=== PATIENT | female | born 1985 | race African-American/Black ===

== ENCOUNTER 2016-10-10 05:40 | Inpatient (IN) | payer OTHER ==
[~2016-10-10] VITALS: Ht 165.1 cm; Wt 98.4 kg
[2016-10-10] VITALS (16 sets, daily range): BP systolic 103–117; RESP 16–22; TEMP 97.4–98.2; Ht 165.1 cm; Wt 98.4 kg
[2016-10-10] MEDS ORDERED: LIDOCAINE 1% BUFFERED 1 ML SYR INTRADERM PRN (07:10)
[2016-10-10] MEDS ORDERED: METOCLOPRAMIDE 10 MG/2 ML VIAL IV PUSH ONE (07:10)
[2016-10-10] MEDS ORDERED: CEFAZOLIN (LD/OB) 100 ML IV ONE (07:10)
[2016-10-10] MEDS ORDERED: FAMOTIDINE 20 MG INJ IV ONE (07:10)
[2016-10-10] MEDS: LACT RINGERS 1,000 ML IV SCH ×2 (07:15→09:16)
[2016-10-10] MEDS ORDERED: MORPHINE 4 MG/ML SYR IV PRN ×2 (09:30)
[2016-10-10] MEDS ORDERED: MORPHINE 2 MG/ML SYR IV PRN ×2 (09:30)
[2016-10-10] MEDS ORDERED: NALOXONE 0.4 MG/ML AMP IV PRN (09:30)
[2016-10-10] MEDS ORDERED: DIPHENHYDRAMINE 50 MG/ML VIAL IV PRN (09:30)
[2016-10-10] MEDS ORDERED: SALINE FLUSH 10 ML FLUSH PRN (09:30)
[2016-10-10] MEDS ORDERED: BUTORPHANOL 1 MG/ML VIAL IV PRN (09:30)
[2016-10-10] MEDS ORDERED: DILAUDID 1 MG/ML AMP IV PRN (09:30)
[2016-10-10] MEDS ORDERED: MEPERIDINE 25 MG/ML IV PRN (09:30)
[2016-10-10] MEDS ORDERED: OXYCODONE 5 MG TAB PO PRN (09:30)
[2016-10-10] MEDS ORDERED: MEASLES,MUMPS,RUBELLA VAC SUBQ.VACC ONE (10:40)
[2016-10-10] MEDS ORDERED: TDaP 0.5 ML VIAL IM.VACC ONE (10:40)
[2016-10-10] MEDS ORDERED: ONDANSETRON 4 MG VIAL IV PRN (10:40)
[2016-10-10] MEDS ORDERED: OXYTOCIN 15 UNITS/250 ML NS 250 ML IV SCH (10:40)
[2016-10-10] MEDS ORDERED: LACT RINGERS 1,000 ML IV SCH (10:40)
[2016-10-10] MEDS ORDERED: MAG HYDROX 30 ML UDC PO PRN (10:40)
[2016-10-10] MEDS: MISOPROSTOL 200 MCG TAB PO SCH ×2 (11:15→13:55)
[2016-10-10] MEDS: KETOROLAC 30 MG/ML VIAL IV SCH ×3 (12:21→23:58)
[2016-10-10] MEDS ORDERED: MISSING DOSE XX ONE (14:15)
[2016-10-10] MEDS ORDERED: SCOPOLAMINE PATCH TRANSDERM ONE (14:15)
[2016-10-10] MEDS ORDERED: MISOPROSTOL 100 MCG TAB PO ONE (18:10)
[2016-10-10] MEDS: SALINE FLUSH 10 ML FLUSH SCH (20:00)
[2016-10-11 02:25] VITALS: BP_SYST 110; RESP 16; TEMP 98.3
[2016-10-11 05:26] VITALS: BP_SYST 96; RESP 18; TEMP 98.1
[2016-10-11] MEDS: KETOROLAC 30 MG/ML VIAL IV SCH (05:29)
[2016-10-11] MEDS: SODIUM CHLORIDE 0.9% FLUSH BAG 500 ML IV SCH ×2 (05:30→19:24)
[2016-10-11] MEDS: SALINE FLUSH 10 ML FLUSH SCH ×2 (08:00→19:24)
[2016-10-11] MEDS: DOCUSATE SOD 100 MG CAP PO SCH (09:07)
[2016-10-11 10:10] VITALS: BP_SYST 99; RESP 14; TEMP 98.3
[2016-10-11] MEDS: Ibuprofen 600 MG TAB PO SCH ×2 (13:39→19:07)
[2016-10-11] MEDS ORDERED: AQUAPHOR OINT 1.75 OZ TOPICAL PRN (14:25)
[2016-10-11 18:07] VITALS: BP_SYST 110; TEMP 98
[2016-10-11 18:08] VITALS: RESP 18
[2016-10-12] MEDS: Ibuprofen 600 MG TAB PO SCH ×3 (00:02→12:05)
[2016-10-12 05:38] VITALS: BP_SYST 113; RESP 20; TEMP 98.7
[2016-10-12 09:37] VITALS: BP_SYST 110; TEMP 98.3
[2016-10-12 09:38] VITALS: RESP 18
[2016-10-12] MEDS: SALINE FLUSH 10 ML FLUSH SCH (09:42)
[2016-10-12] MEDS: DOCUSATE SOD 100 MG CAP PO SCH (09:42)
[2016-10-12 11:05] VITALS: BP_SYST 110; RESP 18; TEMP 98.3
[2016-10-12] MEDS ORDERED: TDaP 0.5 ML VIAL IM.VACC ONE (11:55)
[2016-10-13] MEDS ORDERED: REMOVE SCOPALAMINE PATCH XX ONE (14:15)
== END 2016-10-12 14:40 | disposition home or self-care (01) | DRG 766 ==
LOC: LDOP 05:40 → LD 06:48 → OB 13:28
PROVIDERS: ADMIT Obstetrics & Gynecology Reproductive Endocrinology; ATTEND Obstetrics & Gynecology Reproductive Endocrinology
PROC: 10D00Z1 Extraction of Products of Conception, Low, Open Approach (ICD-10-PCS; principal; 2016-10-10)
PROC: 0UB70ZZ Excision of Bilateral Fallopian Tubes, Open Approach (ICD-10-PCS; 2016-10-10)
CPT/HCPCS: 59025; 81002; 82803; 84112; 85025; 96372